=== PATIENT | male | born 1995 | race Caucasian/White ===

== ENCOUNTER 2017-01-05 18:21 | Emergency (ER) | payer SELFPAY ==
[~2017-01-05] VITALS: Ht 170.2 cm; Wt 72.6 kg
[2017-01-05 20:05] VITALS: BP 121/76
[2017-01-05] MEDS ORDERED: SULF1TAB24 PO (21:00)
--- NOTE | 2017-01-05 21:00 | PHYS DOC ---
Past Medical History Past Medical History: No Pertinent History Past Surgical History: No Surgical History Additional Information: 0.75 PPD Alcohol Use: Occasionally Drug Use: Marijuana Adult General Chief Complaint Chief Complaint: ABSCESS HPI HPI Patient is a 21 year old male who presents with abscess to the chest wall for 1 week. He states that he has had a lump in the center of the chest for a few years. He noticed that it was getting larger and more red. His friend applied a drawing salve and was able to express a large amount of drainage from the wound. He denies any fevers. He does not have a PCP. Review of Systems Review of Systems Constitutional: Denies fever or chills. [] Integument: Denies rash or skin lesions. Reports chest wall abscess. Neurologic: Denies headache, focal weakness or sensory changes. [] Allergies Allergies Allergies Coded Allergies Type Severity Reaction Last Updated Verified No Known Drug Allergies 01/05/17 No Physical Exam Physical Exam Constitutional: Well developed, well nourished, no acute distress, non-toxic appearance. [] HENT: Normocephalic, atraumatic, oropharynx moist. [] Eyes: PERRLA, EOMI, conjunctiva normal, no discharge. [] Neck: Normal range of motion, no tenderness, supple, no stridor. [] Cardiovascular: Heart rate regular rhythm, no murmur. [] Lungs & Thorax: Bilateral breath sounds clear to auscultation without wheezes, rales, or rhonchi. [] Skin: Warm, dry, no erythema, no rash. There is a 3x1 cm indurated abscess of the lower sternum without surrounding cellulitis. There is no spontaneous drainage from the wound. Neurologic: Alert and oriented X 3, normal motor function, normal sensory function, no focal deficits noted. [] Psychologic: Affect normal, judgement normal, mood normal. [] Current Patient Data Vital Signs Vital Signs Date Time Temp Pulse Resp B/P Pulse Ox O2 Delivery O2 Flow Rate FiO2 01/05/17 20:05 98.4 90 18 96 Room Air 98.4 EKG EKG [] Radiology/Procedures Radiology/Procedures [] Course & Med Decision Making Course & Med Decision Making Pertinent Labs and Imaging studies reviewed. (See chart for details) [] Dragon Disclaimer Dragon Disclaimer This electronic medical record was generated, in whole or in part, using a voice recognition dictation system. Departure Departure Impression: Primary Impression: Chest wall abscess Disposition: 01 HOME, SELF-CARE Condition: STABLE Referrals: NO PCP (PCP) Patient Instructions: Abscess, [id number] Additional Instructions: Please complete all of the prescribe antibiotics, even if your wound is improving. Please apply a warm compress to the wound to encourage drainage. Please follow up with a primary care provider in 2-3 days for recheck of your wound, sooner if concerns. Return to the emergency department if you have any new or concerning symptoms. Scripts Sulfamethoxazole/Trimethoprim (Bactrim Ds Tablet)1 Each Tablet1 Tab PO BID #14 TAB Prov:MANNY STOLL 01/05/17 MANNY STOLL Jan 05, 2017 21:00
== END 2017-01-05 21:05 | disposition home or self-care (01) ==
LOC: ER 18:21
DX: L02.213 Cutaneous abscess of chest wall (principal); F12.10 Cannabis abuse, uncomplicated; F17.200 Nicotine dependence, unspecified, uncomplicated
CPT/HCPCS: 99283

== ENCOUNTER 2017-08-11 11:52 | Emergency (ER) | payer SELFPAY ==
[~2017-08-11] VITALS: Ht 172.7 cm; Wt 72.6 kg
[~2017-08-11 11:52] MED LIST: SULF1TAB24 PO
[2017-08-11 12:02] VITALS: BP 123/76
--- NOTE | 2017-08-11 12:19 | PHYS DOC ---
Past Medical History Past Medical History: No Pertinent History Past Surgical History: No Surgical History Alcohol Use: Occasionally Drug Use: Marijuana Adult General Chief Complaint Chief Complaint: HEAD INJURY/TRAUMA HPI HPI Patient is a 22 year old male presenting to the emergency department for evaluation of head injury that he sustained at 7:00 this morning while working at [employer]. Says that he was getting some help moving a box and it was above his head. He estimates it was around 70 pounds and fell and hit the occipital region of his head. He said that he felt fine at the time however as he was walking out of work and hit the cold air all of a sudden he felt that he had some memory problems and could not remember where he parked his car and was having some trouble remembering which exit to take while he was driving. He denies any headache nausea vomiting vision changes loss of consciousness difficulty speaking. Says that his gait is normal but he is more aware of the steps that he is taking. No neck pain unilateral weakness numbness or tingling. Is that he feels fine overall except he is somewhat tired. Review of Systems Review of Systems Constitutional: Denies fever or chills [] Eyes: Denies change in visual acuity, redness, or eye pain [] Respiratory: Denies cough or shortness of breath [] Cardiovascular: No additional information not addressed in HPI [] GI: Denies abdominal pain, nausea, vomiting, bloody stools or diarrhea [] Integument: Denies abrasions Neurologic: Denies headache, focal weakness or sensory changes [] All other systems were reviewed and found to be within normal limits, except as documented in this note. Allergies Allergies Allergies Coded Allergies Type Severity Reaction Last Updated Verified No Known Drug Allergies 01/05/17 No Physical Exam Physical Exam Constitutional: Well developed, well nourished, no acute distress, non-toxic appearance. [] HENT: Normocephalic, atraumatic, bilateral external ears normal, oropharynx moist, no oral exudates, nose normal. [] Eyes: PERRLA, EOMI, conjunctiva normal, no discharge. [] Neck: Normal range of motion, no tenderness, supple, no stridor. [] Cardiovascular:Heart rate regular rhythm, no murmur [] Lungs & Thorax: Bilateral breath sounds clear to auscultation [] Neurologic: Alert and oriented X 3, normal motor function, normal sensory function, no focal deficits noted. [] EKG EKG [] Radiology/Procedures Radiology/Procedures [] Course & Med Decision Making Course & Med Decision Making Patient with a closed head injury with no concerning neurologic symptoms. He has some amnesia after the event but he has no headache. Has a completely normal neurologic exam so he'll be discharged in stable condition and told to follow with a primary care provider in 1-2 days and come back to the ED sooner with worsening pain fevers vomiting or other general concerns. Patient aware and agreeable with plan for discharge and verbalized understanding of the above instructions. Dragon Disclaimer Dragon Disclaimer This electronic medical record was generated, in whole or in part, using a voice recognition dictation system. Departure Departure Impression: Primary Impression: CHI (closed head injury) Disposition: 01 HOME, SELF-CARE Condition: STABLE Referrals: NO PCP (PCP) Patient Instructions: Concussion and Brain Injury Problem Qualifiers Primary Impression: CHI (closed head injury) Encounter type: initial encounter Qualified Codes: S09.90XA - Unspecified injury of head, initial encounter STEFANY IRELAND DO Aug 11, 2017 12:19
== END 2017-08-11 12:33 | disposition home or self-care (01) ==
LOC: ER 11:52
DX: S09.90XA Unspecified injury of head, initial encounter (principal); W18.09XA Striking against other object with subsequent fall, initial encounter; Y93.89 Activity, other specified; Y99.8 Other external cause status; Y92.89 Other specified places as the place of occurrence of the external cause
CPT/HCPCS: 99281

== ENCOUNTER 2018-01-22 01:15 | Emergency (ER) | payer SELFPAY | END 2018-01-22 02:56 | disposition home or self-care (01) | LOC: ER 01:15 | DX: H60.11 Cellulitis of right external ear (principal); F12.10 Cannabis abuse, uncomplicated | CPT/HCPCS: 99283 ==

== ENCOUNTER 2018-05-24 19:11 | Emergency (ER) | payer SELFPAY ==
[~2018-05-24] VITALS: Ht 172.7 cm; Wt 68.0 kg
[~2018-05-24 19:11] MED LIST changes: +CLIN300C8 PO
[2018-05-24 19:21] VITALS: BP 128/64
[2018-05-24] MEDS ORDERED: DIPHTH,PERTUSS(ACELL),TET TOX 0.5 ML DISP.SYRIN. VAX IM ONE (19:30)
[2018-05-24] MEDS ORDERED: LIDOCAINE WITH 8.4% SOD BICARB 3 ML DISP.SYRIN. INJ ONE (19:30)
[2018-05-24] MEDS ORDERED: NEOMY/BACITR/POLYMYXIN OINT PACKET. TP ONE (19:30)
--- NOTE | 2018-05-24 21:41 | PHYS DOC ---
Past Medical History Past Medical History: No Pertinent History Additional Past Medical Histor: SKIN ABCESS Past Surgical History: No Surgical History Alcohol Use: None Drug Use: Marijuana Adult General Chief Complaint Chief Complaint: LACERATION/AVULSION HPI HPI Patient is a 23 year old [f__sex] who presents with [] Review of Systems Review of Systems Constitutional: Denies fever or chills [] Eyes: Denies change in visual acuity, redness, or eye pain [] HENT: Denies nasal congestion or sore throat [] Respiratory: Denies cough or shortness of breath [] Cardiovascular: No additional information not addressed in HPI [] GI: Denies abdominal pain, nausea, vomiting, bloody stools or diarrhea [] : Denies dysuria or hematuria [] Musculoskeletal: Denies back pain or joint pain [] Integument: Denies rash or skin lesions [] Neurologic: Denies headache, focal weakness or sensory changes [] Endocrine: Denies polyuria or polydipsia [] All other systems were reviewed and found to be within normal limits, except as documented in this note. Current Medications Current Medications Current Medications Medications (Trade) Dose Ordered Sig/Brett Start Time Stop Time Status Last Admin Dose Admin Diphtheria/ Tetanus/Acell Pertussis (Boostrix) 0.5 ml ONCE ONCE 05/24/18 19:30 05/24/18 19:31 DC Lidocaine/Sodium Bicarbonate (Buffered Lidocaine 1%) 3 ml 1X ONCE 05/24/18 19:30 05/24/18 19:31 DC 05/24/18 20:45 3 ML Neomycin/ Polymyxin/ Bacitracin (Triple Antibiotic Ointment) 1 pkt 1X ONCE 05/24/18 19:30 05/24/18 19:31 DC Allergies Allergies Allergies Coded Allergies Type Severity Reaction Last Updated Verified No Known Drug Allergies 01/05/17 No Physical Exam Physical Exam Constitutional: Well developed, well nourished, no acute distress, non-toxic appearance. [] HENT: Normocephalic, atraumatic, bilateral external ears normal, oropharynx moist, no oral exudates, nose normal. [] Eyes: PERRLA, EOMI, conjunctiva normal, no discharge. [] Neck: Normal range of motion, no tenderness, supple, no stridor. [] Cardiovascular:Heart rate regular rhythm, no murmur [] Lungs & Thorax: Bilateral breath sounds clear to auscultation [] Abdomen: Bowel sounds normal, soft, no tenderness, no masses, no pulsatile masses. [] Skin: Warm, dry, no erythema, no rash. [] Back: No tenderness, no CVA tenderness. [] Extremities: No tenderness, no cyanosis, no clubbing, ROM intact, no edema. [] Neurologic: Alert and oriented X 3, normal motor function, normal sensory function, no focal deficits noted. [] Psychologic: Affect normal, judgement normal, mood normal. [] Current Patient Data Vital Signs Vital Signs Date Time Temp Pulse Resp B/P (MAP) Pulse Ox O2 Delivery O2 Flow Rate FiO2 05/24/18 19:21 98.9 75 22 128/64 (85) 99 Room Air 98.9 EKG EKG [] Radiology/Procedures Radiology/Procedures [] Course & Med Decision Making Course & Med Decision Making Pertinent Labs and Imaging studies reviewed. (See chart for details) [] Dragon Disclaimer Dragon Disclaimer This electronic medical record was generated, in whole or in part, using a voice recognition dictation system. Departure Departure Impression: Primary Impression: PAIN IN RIGHT HAND Additional Impression: LACERATION W/O FB OF R MID FINGER W/O DAMAGE TO NAIL, INIT Disposition: 01 HOME, SELF-CARE Condition: STABLE Referrals: NO PCP (PCP) Patient Instructions: Hand Contusion, [id number], Laceration Care, Adult, [id number] Additional Instructions: He may take Tylenol or ibuprofen as needed for pain. Wound recheck in 48 hours. Keep the bandage that was applied in the ER tonight on for the next 24 hours then you may change bandages twice a day and as needed. apply antibiotic ointment and bandage changes. Sutures out in 10 days, wear the aluminum finger splint until the sutures are removed. Return to the ER if symptoms worsen. Problem Qualifiers RAYA FERREIRA APRN May 24, 2018 21:41
--- NOTE | 2018-05-25 08:50 | RAD ---
Right hand, 3 views, 05/24/2018: HISTORY: Hand pain after punching through a window No fracture or dislocation is identified. The soft tissues are unremarkable. IMPRESSION: No acute right hand abnormality is detected. Electronically signed by: Shane Larson MD (05/25/2018 8:46 AM) [facility]
== END 2018-05-24 21:45 | disposition home or self-care (01) ==
LOC: ER 19:11
DX: S61.212A Laceration without foreign body of right middle finger without damage to nail, initial encounter (principal); X58.XXXA Exposure to other specified factors, initial encounter; Y93.89 Activity, other specified; Y92.89 Other specified places as the place of occurrence of the external cause; Y99.8 Other external cause status
CPT/HCPCS: 29130; 73130; 96372; 99284

== ENCOUNTER 2018-10-07 07:09 | Emergency (ER) | payer SELFPAY ==
[~2018-10-07] VITALS: Ht 170.2 cm; Wt 65.9 kg
[2018-10-07 07:10] VITALS: BP 120/65
--- NOTE | 2018-10-07 07:28 | PHYS DOC ---
Past Medical History Past Medical History: No Pertinent History Additional Past Medical Histor: SKIN ABCESS Past Surgical History: No Surgical History Additional Information: 1 ppd Alcohol Use: None Drug Use: Marijuana Adult General Chief Complaint Chief Complaint: FINGER INJURY [facility] HPI Patient is a 23 year old male who presents for evaluation of a right index finger injury. The patient was evaluated here last week following a minor laceration. He had sutures placed. The patient states the sutures fell out since then but he does have one remaining suture in place which did not come out. No fever or chills. No additional complaints. Review of Systems Review of Systems Constitutional: Denies fever or chills Eyes: Denies HENT: Denies Respiratory: Denies Cardiovascular: No additional information not addressed in HPI Musculoskeletal: Denies back pain or joint pain Integument: Denies rash or skin lesions All other systems were reviewed and found to be within normal limits, except as documented in this note. Allergies Allergies Allergies Coded Allergies Type Severity Reaction Last Updated Verified No Known Drug Allergies 01/05/17 No Physical Exam Physical Exam Constitutional: Well developed, well nourished, no acute distress, non-toxic appearance HENT: Normocephalic, atraumatic, bilateral external ears normal, oropharynx moist Abdomen: Bowel sounds normal, soft, no tenderness, no masses, no pulsatile masses. Skin: Warm, dry, no erythema Extremities: well-healed laceration over the dorsal aspect of the right index laceration over the dorsal aspect of thefinger/PIP joint. wound edges well- approximated and no local signs of infection. one remaining suture in place. Neurologic: Alert and oriented X 3 Psychologic: Affect normal Current Patient Data Vital Signs Vital Signs Date Time Temp Pulse Resp B/P (MAP) Pulse Ox O2 Delivery O2 Flow Rate FiO2 10/07/18 07:10 97.6 87 16 120/65 (83) 99 Room Air 97.6 EKG EKG [] Radiology/Procedures Radiology/Procedures [] Course & Med Decision Making Course & Med Decision Making Pertinent Labs and Imaging studies reviewed. (See chart for details) Patient is evaluated in the ER for sutured wound recheck. A single suture was in place still and was removed w/o difficulty. Patient discharged to home. Dragon Disclaimer Dragon Disclaimer This electronic medical record was generated, in whole or in part, using a voice recognition dictation system. Departure Departure Disposition: 01 HOME, SELF-CARE Condition: GOOD Referrals: NO PCP (PCP) GEOVANNA FIELD DO Oct 07, 2018 07:28
== END 2018-10-07 07:30 | disposition home or self-care (01) ==
LOC: ER 07:09
DX: S61.210D Laceration without foreign body of right index finger without damage to nail, subsequent encounter (principal); F17.200 Nicotine dependence, unspecified, uncomplicated; X58.XXXD Exposure to other specified factors, subsequent encounter
CPT/HCPCS: 99281

== ENCOUNTER 2018-10-10 07:57 | Emergency (ER) | payer SELFPAY ==
[~2018-10-10] VITALS: Ht 170.2 cm; Wt 65.8 kg
[2018-10-10] MEDS ORDERED: IV NORMAL SALINE 1000ML BAG 1,000 ML IV SCH (08:15)
--- NOTE | 2018-10-10 08:55 | PHYS DOC ---
Past Medical History Past Medical History: No Pertinent History Additional Past Medical Histor: SKIN ABCESS Past Surgical History: No Surgical History Alcohol Use: None Drug Use: Marijuana Adult General Chief Complaint Chief Complaint: NAUSEA/VOMITING/DIARRHA HPI HPI Patient is a 23 year old male who brought in by EMS because of bloody vomiting. Patient states he was diagnosed with flu 4 days ago and currently taking Tamiflu and for the last 2 days had episodes of vomiting and diarrhea. Patient states he had 8 episodes of vomiting and several episodes of nonbloody diarrhea for the last 2 days and this morning had bright red blood in his vomiting materials. Patient states he had subjective fever yesterday and complaining of cramping lower abdominal pain during episodes of vomiting and diarrhea. Patient denies easy bruising and other bleeding, dizziness, palpitation. Patient states his cough did not change for the last few days. Patient denies taking anti-inflammatory medication and blood thinner medication. Patient had Zofran by EMS and feels better now. Review of Systems Review of Systems Constitutional: Reports fever Eyes: Denies change in visual acuity, redness, or eye pain [] HENT: Reports nasal congestion and Respiratory: Post cough Cardiovascular: No additional information not addressed in HPI [] GI: Reports abdominal pain, nausea, vomiting, diarrhea [] : Denies dysuria or hematuria [] Musculoskeletal: Denies back pain or joint pain [] Integument: Denies rash or skin lesions [] Neurologic: Denies headache, focal weakness or sensory changes [] Endocrine: Denies polyuria or polydipsia [] All other systems were reviewed and found to be within normal limits, except as documented in this note. Current Medications Current Medications Current Medications Medications (Trade) Dose Ordered Sig/Brett Start Time Stop Time Status Last Admin Dose Admin Sodium Chloride 1,000 ml @ 1,000 mls/hr Q1H 10/10/18 08:15 10/10/18 09:14 DC 10/10/18 10:08 1,000 MLS/HR Allergies Allergies Allergies Coded Allergies Type Severity Reaction Last Updated Verified No Known Drug Allergies 01/05/17 No Physical Exam Physical Exam Constitutional: Well developed, well nourished, mild distress, non-toxic appearance. [] HENT: Normocephalic, atraumatic, bilateral external ears normal, oropharynx moist, no oral exudates, nose normal. [] Eyes: PERRLA, EOMI, conjunctiva normal, no discharge. [] Neck: Normal range of motion, no tenderness, supple, no stridor. [] Cardiovascular:Heart rate regular rhythm, no murmur [] Lungs & Thorax: Bilateral breath sounds clear to auscultation [] Abdomen: Bowel sounds normal, soft, no tenderness, lower abdominal guarding ,no masses, no pulsatile masses. Patient refused rectal exam. [] Skin: Warm, dry, no erythema, no rash. [] Back: No tenderness, no CVA tenderness. [] Extremities: No tenderness, no cyanosis, no clubbing, ROM intact, no edema. [] Neurologic: Alert and oriented X 3, normal motor function, normal sensory function, no focal deficits noted. [] Psychologic: Affect normal, judgement normal, mood normal. [] Current Patient Data Vital Signs Vital Signs Date Time Temp Pulse Resp B/P (MAP) Pulse Ox O2 Delivery O2 Flow Rate FiO2 10/10/18 09:40 98.0 79 18 116/55 (75) 96 Room Air 98.0 Lab Values Laboratory Tests Test 10/10/18 09:55 10/10/18 10:20 White Blood Count 9.2 x10^3/uL (4.0-11.0) Red Blood Count 4.26 x10^6/uL (4.30-5.70) L Hemoglobin 13.9 g/dL (13.0-17.5) Hematocrit 38.9 % (39.0-53.0) L Mean Corpuscular Volume 91 fL (79-100) Mean Corpuscular Hemoglobin 33 pg (25-35) Mean Corpuscular Hemoglobin Concent 36 g/dL (31-37) Red Cell Distribution Width 13.2 % (11.5-14.5) Platelet Count 288 x10^3/uL (140-400) Neutrophils (%) (Auto) 73 % (31-73) Lymphocytes (%) (Auto) 19 % (24-48) L Monocytes (%) (Auto) 6 % (0-9) Eosinophils (%) (Auto) 2 % (0-3) Basophils (%) (Auto) 0 % (0-3) Neutrophils # (Auto) 6.8 x10^3uL (1.8-7.7) Lymphocytes # (Auto) 1.7 x10^3/uL (1.0-4.8) Monocytes # (Auto) 0.6 x10^3/uL (0.0-1.1) Eosinophils # (Auto) 0.1 x10^3/uL (0.0-0.7) Basophils # (Auto) 0.0 x10^3/uL (0.0-0.2) Prothrombin Time 13.1 SEC (11.7-14.0) Prothrombin Time INR 1.0 (0.8-1.1) PTT 33 SEC (24-38) Sodium Level 142 mmol/L (136-145) Potassium Level 4.2 mmol/L (3.5-5.1) Chloride Level 106 mmol/L (98-107) Carbon Dioxide Level 30 mmol/L (21-32) Anion Gap 6 (6-14) Blood Urea Nitrogen 11 mg/dL (8-26) Creatinine 0.7 mg/dL (0.7-1.3) Estimated GFR (Cockcroft-Gault) 137.4 BUN/Creatinine Ratio 16 (6-20) Glucose Level 93 mg/dL (70-99) Calcium Level 8.8 mg/dL (8.5-10.1) Total Bilirubin 0.2 mg/dL (0.2-1.0) Aspartate Amino Transferase (AST) 19 U/L (15-37) Alanine Aminotransferase (ALT) 30 U/L (16-63) Alkaline Phosphatase 100 U/L (46-116) Total Protein 7.3 g/dL (6.4-8.2) Albumin 3.4 g/dL (3.4-5.0) Albumin/Globulin Ratio 0.9 (1.0-1.7) L Lipase 76 U/L (73-393) Urine Collection Type Unknown Urine Color Yellow Urine Clarity Clear Urine pH 7.5 Urine Specific Roberts 1.025 Urine Protein Negative mg/dL (NEG-TRACE) Urine Glucose (UA) Negative mg/dL (NEG) Urine Ketones (Stick) Negative mg/dL (NEG) Urine Blood Negative (NEG) Urine Nitrite Negative (NEG) Urine Bilirubin Negative (NEG) Urine Urobilinogen Dipstick 1.0 mg/dL (0.2 mg/dL) Urine Leukocyte Esterase Negative (NEG) Urine RBC 0 /HPF (0-2) Urine WBC 1-4 /HPF (0-4) Urine Bacteria Few /HPF (0-FEW) Urine Mucus Marked /LPF Laboratory Tests 10/10/18 09:55 Laboratory Tests 10/10/18 09:55 EKG EKG [] Radiology/Procedures Radiology/Procedures [] Course & Med Decision Making Course & Med Decision Making Pertinent Labs reviewed. (See chart for details) Evaluation of patient in ER showed 23-year-old male patient with history of recent viral syndrome diagnosis and complaining of nausea and vomiting for 2 days and strings of blood in vomiting today. Patient had a stable vital signs and did not want of rectal exam. Patient treated with IV fluid and Zofran and felt better. Labs was unremarkable. Plan discharge patient home with diagnose of viral gastroenteritis. Dragon Disclaimer Dragon Disclaimer This electronic medical record was generated, in whole or in part, using a voice recognition dictation system. Departure Departure Impression: Primary Impression: Acute gastroenteritis Additional Impression: Viral illness Disposition: HOME, SELF-CARE (@1055) Condition: IMPROVED Referrals: NO PCP (PCP) Patient Instructions: Viral Gastroenteritis, Viral Syndrome Additional Instructions: Drink plenty of liquids Follow-up with your primary care physician in 3-5 days Return to ER if not getting better Do not eat solid food for 24 hours Scripts Ondansetron Hcl (ZOFRAN) 4 Mg Tablet 4 MG PO PRN TID PRN for NAUSEA, #15 nausea/vomiting Prov: ALICIA RODRIGUEZ MD 10/10/18 Benzonatate (TESSALON PERLE) 100 Mg Capsule 1 CAP PO TID for cough, #21 CAP Prov: ALICIA RODRIGUEZ MD 10/10/18 Problem Qualifiers ALICIA RODRIGUEZ MD Oct 10, 2018 08:55
[2018-10-10 09:40] VITALS: BP 116/55
[2018-10-10 10:29] LABS: BASO % 0 % (0-3); EOS # 0.1 x10^3/uL (0.0-0.7); EOS % 2 % (0-3); HEMATOCRIT 38.9 % (39.0-53.0); HEMOGLOBIN 13.9 g/dL (13.0-17.5); LYMPH # 1.7 x10^3/uL (1.0-4.8); LYMPH % 19 % (24-48); MEAN CORPUSCULAR HEMOGLOBIN 33 pg (25-35); MEAN CORPUSCULAR HGB CONC 36 g/dL (31-37); MEAN CORPUSCULAR VOLUME 91 fL (79-100); MONO # 0.6 x10^3/uL (0.0-1.1); MONO % 6 % (0-9); NEUT # 6.8 x10^3uL (1.8-7.7); NEUT % 73 % (31-73); PLATELET COUNT 288 x10^3/uL (140-400); RED BLOOD COUNT 4.26 x10^6/uL (4.30-5.70); RED CELL DISTRIBUTION WIDTH 13.2 % (11.5-14.5); WHITE BLOOD COUNT 9.2 x10^3/uL (4.0-11.0)
[2018-10-10 10:31] LABS: BILIRUBIN,URINE NEGATIVE (NEG); CLARITY,URINE CLEAR; COLOR,URINE YELLOW; NITRITE,URINE NEGATIVE (NEG); PH,URINE 7.5; PROTEIN,URINE NEGATIVE (NEG-TRACE)
[2018-10-10 10:36] LABS: BACTERIA,URINE FEW /HPF (0-FEW); RBC,URINE 0 /HPF (0-2)
[2018-10-10 10:42] LABS: CALCIUM 8.8 mg/dL (8.5-10.1); CREATININE 0.7 mg/dL (0.7-1.3); GFR 137.4; POTASSIUM 4.2 mmol/L (3.5-5.1)
[2018-10-10 10:47] LABS: PROTHROMBIN TIME PATIENT 13.1 SEC (11.7-14.0)
[2018-10-10 10:48] LABS: ALBUMIN 3.4 g/dL (3.4-5.0); ALBUMIN/GLOBULIN RATIO 0.9 (1.0-1.7); TOTAL BILIRUBIN 0.2 mg/dL (0.2-1.0); TOTAL PROTEIN 7.3 g/dL (6.4-8.2)
[2018-10-10] MEDS ORDERED: BENZ100C PO (11:00)
[2018-10-10] MEDS ORDERED: ONDA4TAB7 PO (11:00)
== END 2018-10-10 11:39 | disposition home or self-care (01) ==
LOC: ER 07:57
DX: A08.39 Other viral enteritis (principal); K92.0 Hematemesis; R05 Cough
CPT/HCPCS: 36415; 80053; 81001; 83690; 85025; 85610; 85730; 96360; 99283; J7030

== ENCOUNTER 2018-12-26 22:32 | Emergency (ER) | payer SELFPAY ==
[~2018-12-26] VITALS: Ht 170.2 cm; Wt 65.8 kg
[~2018-12-26 22:32] MED LIST changes: +BENZ100C PO; +ONDA4TAB7 PO
[2018-12-26 22:45] VITALS: BP 108/63
--- NOTE | 2018-12-26 23:12 | PHYS DOC ---
Past Medical History Past Medical History: No Pertinent History Additional Past Medical Histor: SKIN ABSCESS Past Surgical History: No Surgical History Alcohol Use: None Drug Use: Marijuana Adult General Chief Complaint Chief Complaint: ABSCESS HPI HPI 23-year-old male presents to ER with complaints of left side facial swelling and concerns for an abscess. He reports in the past several days he's had increased pain and swelling by his left ear which is radiating to the left side of his neck and behind his ear. He denies earache, fever, difficulty hearing. Patient reports he has had issues with acne in the past denies any outbreaks with this severity. He reports he does have increased pain with opening and closing his mouth denies difficulty chewing or swallowing. He reports he did take ibuprofen around 5 PM was slight improvement in pain. Review of Systems Review of Systems Constitutional: Denies fever or chills [] Eyes: Denies change in visual acuity, redness, or eye pain [] HENT: Denies nasal congestion or sore throat. Reports pain surrounding left ear with swelling/redness and front below and behind left ear. Denies auditory deficits Respiratory: Denies cough or shortness of breath [] Cardiovascular: No additional information not addressed in HPI [] GI: Denies abdominal pain, nausea, vomiting, bloody stools or diarrhea [] Musculoskeletal: Denies back pain or joint pain. Reports pain in left lateral neck radiating into left side of his head at hairline Integument: Reports diffuse acne. Reports sore in front of lt ear Neurologic: Denies headache, focal weakness or sensory changes. Denies dizziness All other systems were reviewed and found to be within normal limits, except as documented in this note. Current Medications Current Medications Current Medications Medications (Trade) Dose Ordered Sig/Brett Start Time Stop Time Status Last Admin Dose Admin Trimethoprim/ Sulfamethoxazole (Bactrim Ds) 1 tab 1X ONCE 12/26/18 23:45 12/26/18 23:46 Allergies Allergies Allergies Coded Allergies Type Severity Reaction Last Updated Verified No Known Drug Allergies 01/05/17 No Physical Exam Physical Exam Constitutional: Well developed, well nourished, non-toxic appearance. Clear speech HENT: Normocephalic, atraumatic, bilat. ear exam with no erythema/bulging at TM - external canals NL. Diffuse acne on face/neck. Swelling to lt tragus with palp. indurated sore in front of the tragus there is erythema below ear into lt lateral neck at and extending into hairline- tender on palp. No area of fluctuation, oropharynx moist- bilat. tonsillar swelling/erythema- uvula midline , no oral exudates, nose normal. Pt is able to fully open/close mouth- does report increased pain at sore site on lt side face. No drainage/bleeding Eyes: Pupils equal, conjunctiva normal, no discharge. [] Neck: Normal range of motion, no tenderness-no nuchal rigidity, supple, no stridor/gross adenopathy Cardiovascular: Heart rate regular rhythm, no murmur [] Lungs & Thorax: Bilateral breath sounds clear to auscultation. Resp. equal/ nonlabored Skin: Warm, dry Back: No tenderness, full ROM Extremities: No tenderness, no cyanosis, no clubbing, ROM intact, no edema. [] Neurologic: Alert and oriented X 3, normal motor function, normal sensory function, no focal deficits noted. [] Psychologic: Affect normal, judgement normal, mood normal. [] Current Patient Data Vital Signs Vital Signs Date Time Temp Pulse Resp B/P (MAP) Pulse Ox O2 Delivery O2 Flow Rate FiO2 12/26/18 22:45 99.0 85 18 108/63 (78) 97 Room Air 99.0 EKG EKG [] Radiology/Procedures Radiology/Procedures [] Course & Med Decision Making Course & Med Decision Making 2305: Pt was evaluated in the ER for complaints of left-sided facial sore concerns of abscess. Patient on exam was found to have bilateral tonsillar swelling with mild erythema-no exudate. Patient's case was discussed with Dr. Conklin who came to bedside and evaluated patient with this provider. Patient had negative strep test. Patient was provided with dose of Bactrim while in the ER. Education provided on warm compresses to affected area. Education provided on signs and symptoms to return to ER for. Will provide community clinic and physician information with discharge paperwork for follow- up purposes. Patient advised if symptoms worsen and unable to get into a clinic he should return to the ER for reevaluation and further care. Educated on use of Tylenol and/or ibuprofen. Will provide patient with prescription for [place] as well as Bactrim. Education provided on medications. Discharge instructions were discussed. Primitivo Disclaimer Primitivo Disclaimer This electronic medical record was generated, in whole or in part, using a voice recognition dictation system. Departure Departure Impression: Primary Impression: Facial abscess Disposition: 01 HOME, SELF-CARE Condition: STABLE Referrals: NO PCP (PCP) Patient Instructions: Abscess Additional Instructions: Warm compress to affected area 3-4 times a day for 20-30 minutes at a time. Ibuprofen and/or tylenol (unless taking [place] prescription) as directed on container for pain. Follow-up with primary doctor in 1-2 days for wound re-evaluation or return to Emergency Department if you feel symptoms have worsened or with concerns. Scripts Hydrocodone/Apap 5-325 (NORCO 5-325 TABLET) 1 Each Tablet 1 TAB PO PRN Q6HRS PRN for PAIN, #10 TAB 0 Refills No driving or drinking alcohol while taking this medication Prov: ALVARO MOREIRA APRN 12/26/18 Sulfamethoxazole/Trimethoprim (BACTRIM DS TABLET) 1 Each Tablet 1 TAB PO BID, #14 TAB 0 Refills Prov: ALVARO MOREIRA APRN 12/26/18 ALVARO MOREIRA APRN Dec 26, 2018 23:12
[2018-12-26] MEDS ORDERED: HYDR-3164 PO (23:38)
[2018-12-26] MEDS ORDERED: SULF1TAB24 PO (23:38)
[2018-12-26] MEDS ORDERED: SMZ/TMP 800/160MG TABLET. PO ONE (23:45)
== END 2018-12-27 00:05 | disposition home or self-care (01) ==
LOC: ER 22:32
DX: L02.01 Cutaneous abscess of face (principal)
CPT/HCPCS: 87070; 87880; 99283

== ENCOUNTER 2019-01-03 03:17 | Emergency (ER) | payer SELFPAY ==
[~2019-01-03] VITALS: Ht 170.2 cm; Wt 65.8 kg
[~2019-01-03 03:17] MED LIST changes: +HYDR-3164 PO
[2019-01-03 03:20] VITALS: BP 115/63
[2019-01-03] MEDS ORDERED: TRAM50TA PO (05:59)
[2019-01-03] MEDS ORDERED: ceFAZolin IM 1 GM VIAL IM ONE (06:00)
--- NOTE | 2019-01-03 06:00 | PHYS DOC ---
Past Medical History Past Medical History: No Pertinent History Additional Past Medical Histor: SKIN ABSCESS Past Surgical History: No Surgical History Alcohol Use: Occasionally Drug Use: Marijuana Adult General Chief Complaint Chief Complaint: SKIN RASH/ABSCESS HPI HPI Patient is a 23-year-old male who presents with complaint of tender swollen area around the base of his left ear. Patient was seen here a couple of days ago and was initiated on Bactrim. Patient states that he is returning because the area of swelling has increased. He states that it is getting painful at this point in rates pain as moderate. He denies any fever. Review of Systems Review of Systems Constitutional: Denies fever or chills [] Respiratory: Denies cough or shortness of breath [] Cardiovascular: No additional information not addressed in HPI [] Integument: Positive tender, swollen area of left ear[] Current Medications Current Medications Current Medications Medications (Trade) Dose Ordered Sig/Brett Start Time Stop Time Status Last Admin Dose Admin Cefazolin Sodium (Ancef Im) 1 gm 1X ONCE 01/03/19 06:00 01/03/19 06:01 Allergies Allergies Allergies Coded Allergies Type Severity Reaction Last Updated Verified No Known Drug Allergies 01/05/17 No Physical Exam Physical Exam Constitutional: Well developed, well nourished, no acute distress, non-toxic appearance. [] Neck: Normal range of motion, no tenderness, supple, left-sided cervical lymphadenopathy. [] Cardiovascular:Heart rate regular rhythm, no murmur [] Lungs & Thorax: Bilateral breath sounds clear to auscultation [] Skin: There is tenderness, induration and fluctuance noted, measuring approximately 2 x 3 cm at the base of the left ear, consistent with abscess. [] Current Patient Data Vital Signs Vital Signs Date Time Temp Pulse Resp B/P (MAP) Pulse Ox O2 Delivery O2 Flow Rate FiO2 01/03/19 03:20 97.7 58 18 115/63 (80) 98 Room Air 97.7 EKG EKG [] Radiology/Procedures Radiology/Procedures [] Course & Med Decision Making Course & Med Decision Making Pertinent Labs and Imaging studies reviewed. (See chart for details) Abscess Incision and Drainage with irrigation by me: Location: Base of left ear Anesthesia: Local 1% Lidocaine Technique: Irrigated. Disrupted loculations w/ instrumentation Packin/4 inch iodoform form gauze Complications: Neurovascularly intact post procedure 48 hour wound check. Scar minimization instructions given. Dragon Disclaimer Dragon Disclaimer This electronic medical record was generated, in whole or in part, using a voice recognition dictation system. Departure Departure Impression: Primary Impression: Facial abscess Disposition: 01 HOME, SELF-CARE Condition: STABLE Referrals: NO PCP (PCP) Patient Instructions: Abscess Additional Instructions: Continue taking antibiotics as previously instructed. Return for recheck in 2 days and for packing removal. Scripts Tramadol Hcl (TRAMADOL HCL) 50 Mg Tablet 50 MG PO Q6HRS PRN for PAIN, #10 TAB Prov: CONRAD BOWEN Jr. DO 01/03/19 CONRAD BOWEN Jr. DO Jan 03, 2019 06:00
== END 2019-01-03 06:36 | disposition home or self-care (01) ==
LOC: ER 03:17
DX: L02.01 Cutaneous abscess of face (principal)
CPT/HCPCS: 87071; 87075; 99284; J0690

== ENCOUNTER 2019-04-10 07:03 | Emergency (ER) | payer SELFPAY ==
[~2019-04-10] VITALS: Ht 170.2 cm; Wt 63.5 kg
[~2019-04-10 07:03] MED LIST changes: +TRAM50TA PO
--- NOTE | 2019-04-10 07:48 | PHYS DOC ---
Past Medical History Past Medical History: No Pertinent History Additional Past Medical Histor: SKIN ABSCESS Past Surgical History: No Surgical History Additional Information: 1 ppd Alcohol Use: Rarely Drug Use: Marijuana Adult General Chief Complaint Chief Complaint: CHEST WALL PAIN HPI HPI Patient is a 23-year-old male who presents to the emergency department for evaluation. He states that for the past 2-3 days, he has had left upper chest wall pain, worse with movement, deep breathing, and palpation. He has not had any significant cough, denies any significant shortness of breath. The pain is described as sharp, and is nonradiating. Other than as stated above, there are no alleviating or exacerbating factors to his symptoms. The patient does not have any family history of permission onset coronary artery disease, recent travel or immobilization or family history of thrombophilia. Review of Systems Review of Systems Constitutional: Denies fever or chills [] Eyes: Denies change in visual acuity, redness, or eye pain [] HENT: Denies nasal congestion or sore throat [] Respiratory: Denies cough or shortness of breath [] Cardiovascular: No additional information not addressed in HPI [] GI: Denies abdominal pain, nausea, vomiting, bloody stools or diarrhea [] : Denies dysuria or hematuria [] Musculoskeletal: Denies back pain or joint pain [] Integument: Denies rash or skin lesions [] Neurologic: Denies headache, focal weakness or sensory changes [] Endocrine: Denies polyuria or polydipsia [] All other systems were reviewed and found to be within normal limits, except as documented in this note. Allergies Allergies Allergies Coded Allergies Type Severity Reaction Last Updated Verified No Known Drug Allergies 01/05/17 No Physical Exam Physical Exam PHYSICAL EXAM: CONSTITUTIONAL: Well developed, well nourished HEAD: normocephalic, atraumatic EENT: PERRL, EOMI. Conjunctivae normal color, sclerae non-icteric; moist mucous membranes. NECK: Supple, non-tender; no meningismus. LUNGS: Lungs CTA, breathing even and unlabored. Normal air movement. HEART: Regular rate and rhythm, no murmur CHEST: No deformity; there is tenderness to palpation to the anterior left chest wall, which reproduces the patient's pain. ABDOMEN: The abdomen is soft, and non-tender, no masses or bruits. EXTREM: Normal ROM; no deformity, no calf tenderness. Normal pulses palpable in all extremities. There is no pedal edema. SKIN: No rash; no diaphoresis NEURO: Alert; normal speech and cognition; CN's grossly intact; strength grossly intact without focal deficit. BACK: No CVA TTP. Current Patient Data Vital Signs Vital Signs Date Time Temp Pulse Resp B/P (MAP) Pulse Ox O2 Delivery O2 Flow Rate FiO2 04/10/19 07:15 98.3 82 16 117/65 (82) 100 Room Air 98.3 Lab Values Laboratory Tests Test 04/10/19 07:38 04/10/19 08:05 White Blood Count 7.9 x10^3/uL (4.0-11.0) Red Blood Count 4.49 x10^6/uL (4.30-5.70) Hemoglobin 14.4 g/dL (13.0-17.5) Hematocrit 41.4 % (39.0-53.0) Mean Corpuscular Volume 92 fL (79-100) Mean Corpuscular Hemoglobin 32 pg (25-35) Mean Corpuscular Hemoglobin Concent 35 g/dL (31-37) Red Cell Distribution Width 13.8 % (11.5-14.5) Platelet Count 246 x10^3/uL (140-400) Neutrophils (%) (Auto) 81 % (31-73) H Lymphocytes (%) (Auto) 10 % (24-48) L Monocytes (%) (Auto) 9 % (0-9) Eosinophils (%) (Auto) 1 % (0-3) Basophils (%) (Auto) 0 % (0-3) Neutrophils # (Auto) 6.4 x10^3/uL (1.8-7.7) Lymphocytes # (Auto) 0.8 x10^3/uL (1.0-4.8) L Monocytes # (Auto) 0.7 x10^3/uL (0.0-1.1) Eosinophils # (Auto) 0.0 x10^3/uL (0.0-0.7) Basophils # (Auto) 0.0 x10^3/uL (0.0-0.2) D-Dimer (Isabela) < 0.27 ug/mlFEU Sodium Level 140 mmol/L (136-145) Potassium Level 3.7 mmol/L (3.5-5.1) Chloride Level 103 mmol/L (98-107) Carbon Dioxide Level 27 mmol/L (21-32) Anion Gap 10 (6-14) Blood Urea Nitrogen 12 mg/dL (8-26) Creatinine 0.8 mg/dL (0.7-1.3) Estimated GFR (Cockcroft-Gault) 117.8 BUN/Creatinine Ratio 15 (6-20) Glucose Level 99 mg/dL (70-99) Calcium Level 8.8 mg/dL (8.5-10.1) Total Bilirubin 0.4 mg/dL (0.2-1.0) Aspartate Amino Transferase (AST) 19 U/L (15-37) Alanine Aminotransferase (ALT) 23 U/L (16-63) Alkaline Phosphatase 101 U/L (46-116) Troponin I Quantitative < 0.017 ng/mL (0.000-0.055) Total Protein 7.2 g/dL (6.4-8.2) Albumin 4.1 g/dL (3.4-5.0) Albumin/Globulin Ratio 1.3 (1.0-1.7) Laboratory Tests 04/10/19 07:38 Laboratory Tests 04/10/19 08:05 EKG EKG Normal sinus rhythm with a normal rate, normal axis, normal intervals, there are no acute ischemic ST/T changes.[] Radiology/Procedures Radiology/Procedures [PROCEDURE: CHEST PA & LATERAL Chest, PA and Lateral: Technique: PA and lateral views of the chest were obtained. History: Chest pain. Comparison: None. Findings: The heart and pulmonary vasculature appear within normal limits. The lungs are clear. The pleural margins are clear. Impression: No acute chest process is seen. ] Course & Med Decision Making Course & Med Decision Making Pertinent Labs and Imaging studies reviewed. (See chart for details) []8:55 AM:Patient remains stable. I discussed test results, the need for close follow-up, and return precautions. Draghailey Disclaimer Dragon Disclaimer This electronic medical record was generated, in whole or in part, using a voice recognition dictation system. Departure Departure Impression: Primary Impression: Musculoskeletal chest pain Disposition: 01 HOME, SELF-CARE Condition: STABLE Patient Instructions: Chest Wall Pain Additional Instructions: Ibuprofen 400-600 mg every 6 hours may help improve your symptoms. Applying a heating pad to the affected area may help improve your symptoms. STEFANY JAVIER MD Apr 10, 2019 07:48
--- NOTE | 2019-04-10 08:08 | EKG ---
[facility] [address] [place] [address] Test Date: 2019-04-10 Test Time: 07:14:31 Pat Name: ELOY GREGG Department: Room: Gender: M Senior Sourcing Manager: : 1995 Requested By: STEFANY JAVIER Order Number: [id number] Reading MD: Measurements Intervals [place] Rate: 73 P: 69 WV: 160 QRS: 63 QRSD: 94 T: 38 QT: 328 QTc: 364 Interpretive Statements SINUS RHYTHM QRS(T) CONTOUR ABNORMALITY CONSIDER ANTEROLATERAL MYOCARDIAL DAMAGE POSSIBLY ABNORMAL ECG RI6.01 Unconfirmed report No previous ECG available for comparison
--- NOTE | 2019-04-10 08:13 | RAD ---
Chest, PA and Lateral: Technique: PA and lateral views of the chest were obtained. History: Chest pain. Comparison: None. Findings: The heart and pulmonary vasculature appear within normal limits. The lungs are clear. The pleural margins are clear. Impression: No acute chest process is seen. Electronically signed by: Fran Olmos MD (04/10/2019 8:10 AM) [facility]
[2019-04-10 08:19] LABS: BASO % 0 % (0-3); EOS % 1 % (0-3); HEMATOCRIT 41.4 % (39.0-53.0); HEMOGLOBIN 14.4 g/dL (13.0-17.5); LYMPH # 0.8 x10^3/uL (1.0-4.8); LYMPH % 10 % (24-48); MEAN CORPUSCULAR HEMOGLOBIN 32 pg (25-35); MEAN CORPUSCULAR HGB CONC 35 g/dL (31-37); MEAN CORPUSCULAR VOLUME 92 fL (79-100); MONO # 0.7 x10^3/uL (0.0-1.1); MONO % 9 % (0-9); NEUT # 6.4 x10^3/uL (1.8-7.7); NEUT % 81 % (31-73); PLATELET COUNT 246 x10^3/uL (140-400); RED BLOOD COUNT 4.49 x10^6/uL (4.30-5.70); RED CELL DISTRIBUTION WIDTH 13.8 % (11.5-14.5); WHITE BLOOD COUNT 7.9 x10^3/uL (4.0-11.0)
[2019-04-10 08:26] LABS: CALCIUM 8.8 mg/dL (8.5-10.1); CREATININE 0.8 mg/dL (0.7-1.3); GFR 117.8; POTASSIUM 3.7 mmol/L (3.5-5.1)
[2019-04-10 08:31] LABS: ALBUMIN 4.1 g/dL (3.4-5.0); ALBUMIN/GLOBULIN RATIO 1.3 (1.0-1.7); TOTAL BILIRUBIN 0.4 mg/dL (0.2-1.0); TOTAL PROTEIN 7.2 g/dL (6.4-8.2)
[2019-04-10 09:00] VITALS: BP 102/53
== END 2019-04-10 09:10 | disposition home or self-care (01) ==
LOC: ER 07:03
DX: R07.89 Other chest pain (principal); F17.200 Nicotine dependence, unspecified, uncomplicated
CPT/HCPCS: 36415; 71046; 80053; 84484; 85025; 85379; 93005; 99285-25

== ENCOUNTER 2019-07-01 20:41 | Emergency (ER) | payer SELFPAY ==
[~2019-07-01] VITALS: Ht 170.2 cm; Wt 63.5 kg
[2019-07-01 20:50] VITALS: BP 115/55
[2019-07-01] MEDS ORDERED: PENI500T PO (21:04)
--- NOTE | 2019-07-01 21:05 | PHYS DOC ---
Past Medical History Past Medical History: No Pertinent History Additional Past Medical Histor: SKIN ABSCESS Past Surgical History: No Surgical History Alcohol Use: Rarely Drug Use: Marijuana Adult General Chief Complaint Chief Complaint: SORE THROAT HPI HPI Patient is a 24-year-old male who presents with complaint of sore throat that started this morning. He states that initially wasn't very bad but has become very painful to swallow. He is not aware of any fever. She states that he did have a headache yesterday but no headache today. He rates pain as moderate.[] Review of Systems Review of Systems Constitutional: Denies fever or chills [] HENT: Positive sore throat [] Respiratory: Denies cough or shortness of breath [] Cardiovascular: No additional information not addressed in HPI [] Integument: Denies rash or skin lesions [] Allergies Allergies Allergies Coded Allergies Type Severity Reaction Last Updated Verified No Known Drug Allergies 01/05/17 No Physical Exam Physical Exam Constitutional: Well developed, well nourished, no acute distress, non-toxic appearance. [] HENT: Normocephalic, atraumatic, throat reveals tonsillar 3+ swelling with erythema. No exudates. No trismus or uvular deviation. [] Eyes: PERRLA, EOMI, conjunctiva normal, no discharge. [] Neck: Normal range of motion, no tenderness, supple, with bilateral anterior cervical lymphadenopathy. [] Cardiovascular: Regular rate and rhythm[] Lungs & Thorax: Bilateral breath sounds clear to auscultation [] EKG EKG [] Radiology/Procedures Radiology/Procedures [] Course & Med Decision Making Course & Med Decision Making Pertinent Labs and Imaging studies reviewed. (See chart for details) [] Dragon Disclaimer Dragon Disclaimer This electronic medical record was generated, in whole or in part, using a voice recognition dictation system. Departure Departure Impression: Primary Impression: Tonsillitis Disposition: HOME, SELF-CARE Condition: STABLE Referrals: NO PCP (PCP) Patient Instructions: Form - Excuse from Work, School, or Physical Activity, Tonsillitis Scripts Penicillin V Potassium (PENICILLIN V POTASSIUM) 500 Mg Tablet 2 TAB PO BID, #40 TAB Prov: CONRAD BOWEN Jr. DO 07/01/19 CONRAD BOWEN Jr. DO Jul 01, 2019 21:05
[2019-07-01] MEDS ORDERED: methylPREDNISolone SOD SUCC PF 125 MG/2 ML VIAL. IM ONE (21:30)
[2019-07-01] MEDS ORDERED: cefTRIAXone IM 1 GM VIAL IM ONE (21:30)
== END 2019-07-01 21:35 | disposition home or self-care (01) ==
LOC: ER 20:41
DX: J03.90 Acute tonsillitis, unspecified (principal); R51 Headache
CPT/HCPCS: 96372; 99284; J0696; J2930

== ENCOUNTER 2019-07-16 23:01 | Emergency (ER) | payer SELFPAY ==
[~2019-07-16] VITALS: Ht 172.7 cm; Wt 65.8 kg
[~2019-07-16 23:01] MED LIST changes: +PENI500T PO
[2019-07-16 23:28] VITALS: BP 124/86
[2019-07-16] MEDS ORDERED: AMOX1TAB61 PO (23:49)
--- NOTE | 2019-07-16 23:49 | PHYS DOC ---
Past Medical History Past Medical History: No Pertinent History Additional Past Medical Histor: SKIN ABSCESS (DAX TUCKER APRN) Past Surgical History: No Surgical History (DAX TUCKER APRN) Alcohol Use: None Drug Use: Marijuana (DAX TUCKER APRN) Adult General Chief Complaint Chief Complaint: DENTAL PROBLEM HPI HPI Patient is a 24 year old male presents with a chipped tooth a month ago, and then started having severe dental pain over the last 2 days. Rates his pain out of 10 in severity and sharp. Denies fever. (DAX TUCKER APRN) Review of Systems Review of Systems Constitutional: Denies fever or chills [] Eyes: Denies change in visual acuity, redness, or eye pain [] HENT: Denies nasal congestion or sore throat [] Respiratory: Denies cough or shortness of breath [] Cardiovascular: No additional information not addressed in HPI [] GI: Denies abdominal pain, nausea, vomiting, bloody stools or diarrhea [] : Denies dysuria or hematuria [] Musculoskeletal: Denies back pain or joint pain [] Integument: Denies rash or skin lesions [] Neurologic: Denies headache, focal weakness or sensory changes [] Endocrine: Denies polyuria or polydipsia [] All other systems were reviewed and found to be within normal limits, except as documented in this note. (DAX TUCKER APRN) Current Medications Current Medications Current Medications Medications (Trade) Dose Ordered Sig/Brett Start Time Stop Time Status Last Admin Dose Admin Lidocaine HCl (Viscous Lidocaine) 15 ml 1X STAT 07/16/19 23:50 07/16/19 23:57 DC 07/16/19 23:54 15 ML (DAX RICHARDSON DO) Allergies Allergies Allergies Coded Allergies Type Severity Reaction Last Updated Verified No Known Drug Allergies 01/05/17 No (DAX RICHARDSON DO) Physical Exam Physical Exam Constitutional: Well developed, well nourished, no acute distress, non-toxic appearance. [] HENT: Normocephalic, atraumatic, bilateral external ears normal, oropharynx moist, no oral exudates, nose normal. Tooth # 27 has an abscess. Eyes: PERRLA, EOMI, conjunctiva normal, no discharge. [] Neck: Normal range of motion, no tenderness, supple, no stridor. [] Skin: Warm, dry, no erythema, no rash. [] Back: No tenderness, no CVA tenderness. [] Extremities: No tenderness, no cyanosis, no clubbing, ROM intact, no edema. [] Neurologic: Alert and oriented X 3, normal motor function, normal sensory function, no focal deficits noted. [] Psychologic: Affect normal, judgement normal, mood normal. [] (DAX TUCKER APRN) Current Patient Data Vital Signs Vital Signs Date Time Temp Pulse Resp B/P (MAP) Pulse Ox O2 Delivery O2 Flow Rate FiO2 07/16/19 23:28 98.2 82 17 124/86 (99) 97 Room Air 98.2 (DAX RICHARDSON DO) EKG EKG [] (DAX TUCKER APRN) Radiology/Procedures Radiology/Procedures [] (DAX TUCKER APRN) Course & Med Decision Making Course & Med Decision Making Pertinent Labs and Imaging studies reviewed. (See chart for details) Will place on Augmentin and give Dental balls. Will have follow up with Dentist. (DAX TUCKER APRN) Dragon Disclaimer Dragon Disclaimer This electronic medical record was generated, in whole or in part, using a voice recognition dictation system. (DAX TUCKER APRN) Departure Departure Impression: Primary Impression: Dental abscess Disposition: 01 HOME, SELF-CARE Condition: STABLE Referrals: NO PCP (PCP) Patient Instructions: Carbamide Peroxide dental solution, Dental Abscess Additional Instructions: Thank you for visiting [facility]. We appreciate you trusting us with your care. If any additional problems come up don't hesitate to return to visit us. Please follow up with your primary care provider so they can plan additional care if needed and know about the problem that you had. If symptoms worsen come back to the Emergency Department. Any concerning symptoms that start such as chest pain, shortness of air, weakness or numbness on one side of the body, running high fevers or any other concerning symptoms return to the ER. You have been prescribed an antibiotic today to help fight your infection. Please take all of the antibiotic as directed. If after 48 hours the infection is not improving, please return for more care. If the infection worsens, return to ER for additional care. Please follow up with a dentist as soon as possible. Scripts Amoxicillin/Potassium Clav (AUGMENTIN 875-125 TABLET) 1 Each Tablet 1 TAB PO BID for 7 Days, #14 TAB 0 Refills Prov: DAX TUCKER APRN 07/16/19 Attending Signature Attending Signature I have reviewed the PA/MOSAIC TILER's note and plan of care. I was available for consultation as needed during the patient's visit in the emergency department. I agree with the clinical impression, plan, and disposition. (DAX RICHARDSON DO) DAX TUCKER APRN Jul 16, 2019 23:49 DAX RICHARDSON DO Jul 17, 2019 00:27
[2019-07-16] MEDS ORDERED: LIDOCAINE 2% VISCOUS 15 ML SOLUTION. MM STA (23:50)
== END 2019-07-17 00:04 | disposition home or self-care (01) ==
LOC: ER 23:01
DX: K04.7 Periapical abscess without sinus (principal)
CPT/HCPCS: 99283